=== PATIENT | male | born 1930 | race Caucasian/White ===

== ENCOUNTER → 2016-10-17 | Outpatient (REF) | payer MEDICARE, MEDICAID | END | disposition home or self-care (01) | PROVIDERS: ATTEND Internal Medicine | DX: E11.9 Type 2 diabetes mellitus without complications (principal) ==

== ENCOUNTER → 2016-10-23 | Outpatient (REF) | payer MEDICARE, MEDICAID ==
[2016-10-23 12:22] LABS: ANION GAP 10 MEQ/L (8-16); BLOOD UREA NITROGEN 21 MG/DL (7-18); CALCIUM LEVEL 8.2 MG/DL (8.8-10.2); CARBON DIOXIDE LEVEL 31 MEQ/L (21-32); CHLORIDE LEVEL 96 MEQ/L (98-107); CREATININE FOR GFR 1.17 MG/DL (0.70-1.30); GLOMERULAR FILTRATION RATE > 60.0 (>35); GLUCOSE, FASTING 172 MG/DL (83-110); POTASSIUM SERUM 4.2 MEQ/L (3.5-5.1); SODIUM LEVEL 137 MEQ/L (136-145)
== END | disposition home or self-care (01) ==
PROVIDERS: ATTEND Internal Medicine
DX: I50.9 Heart failure, unspecified (principal); R60.9 Edema, unspecified

== ENCOUNTER → 2016-10-30 | Outpatient (REF) | payer MEDICARE, MEDICAID ==
[2016-10-30 15:18] LABS: ANION GAP 8 MEQ/L (8-16); BLOOD UREA NITROGEN 26 MG/DL (7-18); CARBON DIOXIDE LEVEL 32 MEQ/L (21-32); CHLORIDE LEVEL 99 MEQ/L (98-107); CREATININE FOR GFR 1.16 MG/DL (0.70-1.30); GLOMERULAR FILTRATION RATE > 60.0 (>35); GLUCOSE, FASTING 161 MG/DL (83-110); POTASSIUM SERUM 3.8 MEQ/L (3.5-5.1); SODIUM LEVEL 139 MEQ/L (136-145)
== END | disposition home or self-care (01) ==
PROVIDERS: ATTEND Internal Medicine
DX: I50.9 Heart failure, unspecified (principal); R60.9 Edema, unspecified

== ENCOUNTER → 2017-01-16 | Outpatient (REF) | payer MEDICARE, MEDICAID | PROVIDERS: ATTEND Internal Medicine | DX: E11.9 Type 2 diabetes mellitus without complications (principal) ==

== ENCOUNTER 2017-01-30 00:15 | Inpatient (IN) | payer MEDICARE, MEDICAID ==
[~2017-01-30] VITALS: Ht 172.7 cm; Wt 109.9 kg
[2017-01-30] MEDS ORDERED: NS 500 ML IV ONE (01:00)
[2017-01-30 01:10] LABS: VENOUS BASE EXCESS 5.2 (-2.0-2.0); VENOUS O2 SATURATION 95.9 % (60.0-80.0); VENOUS PARTIAL PRESSURE CO2 42.9 mmHg (38.0-50.0); VENOUS STANDARD HCO3 29.1 MEQ/L
[2017-01-30 01:16] LABS: MEAN CORPUSCULAR HEMOGLOBIN 30.9 pg (27.0-33.0); MEAN CORPUSCULAR VOLUME 90.8 fl (80.0-96.0); PLATELET COUNT, AUTOMATED 313 k/mm3 (150-450); RED CELL DISTRIBUTION WIDTH 13.2 % (11.5-14.5); WHITE BLOOD COUNT 27.4 K/mm3 (4.0-10.0)
[2017-01-30] MEDS ORDERED: OMEP40CA2 PO (01:37)
[2017-01-30] MEDS ORDERED: GUAI100S7 PO (01:37)
[2017-01-30] MEDS ORDERED: TORS100T PO (01:37)
[2017-01-30] MEDS ORDERED: ATOR1TAB21 PO (01:37)
[2017-01-30] MEDS ORDERED: BACITAB3 PO (01:37)
[2017-01-30] MEDS ORDERED: CARB25TA PO (01:37)
[2017-01-30] MEDS ORDERED: ASPI81TA85 PO (01:37)
[2017-01-30] MEDS ORDERED: LEVO125T3 PO (01:37)
[2017-01-30] MEDS ORDERED: ACET-654 PO (01:37)
[2017-01-30] MEDS ORDERED: TROS20TA3 PO (01:37)
[2017-01-30] MEDS ORDERED: LOSA50TA20 PO (01:37)
[2017-01-30] MEDS ORDERED: FINA5TAB2 PO (01:37)
[2017-01-30] MEDS ORDERED: GLUC1KIT IM (01:37)
[2017-01-30] MEDS ORDERED: ALPR2TAB3 PO (01:37)
[2017-01-30] MEDS ORDERED: TRAV04OPD OU (01:37)
[2017-01-30] MEDS ORDERED: K-TA10TA2 PO (01:37)
[2017-01-30] MEDS ORDERED: TRES1INJ SC (01:37)
[2017-01-30] MEDS ORDERED: TRAM50TA2 PO ×2 (01:37)
[2017-01-30] MEDS ORDERED: HUMA100I3 SC ×2 (01:37)
[2017-01-30 01:41] LABS: BANDS 1 % (< 11); TOXIC VACUOLATION 1+
[2017-01-30 01:44] LABS: MICROSCOPIC INDICATED? MAN YES (NO)
[2017-01-30 01:48] LABS: MICROSCOPIC EXAM PERFORMED
[2017-01-30 01:49] LABS: WBC, URINE TNTC /hpf (0-3)
[2017-01-30 01:50] LABS: SQUAMOUS EPITHELIAL CELL URINE NONE SEEN /hpf (SMALL AMT)
[2017-01-30 01:51] LABS: BACTERIA, URINE SMALL AMOUNT; HYALINE CAST, URINE NONE SEEN /lpf (0-1)
[2017-01-30 02:03] LABS: ALBUMIN 3.2 GM/DL (3.2-5.2); ALBUMIN/GLOBULIN RATIO 0.97 (1.00-1.93); BILIRUBIN,DIRECT 0.5 MG/DL (0.0-0.2); BILIRUBIN,TOTAL 1.9 MG/DL (0.2-1.0); CALCIUM LEVEL 7.9 MG/DL (8.8-10.2); CREATININE FOR GFR 1.41 MG/DL (0.70-1.30); GLOMERULAR FILTRATION RATE 50.9 (>35); TOTAL PROTEIN 6.5 GM/DL (6.4-8.2)
[2017-01-30] MEDS ORDERED: ISOVUE-370 76% 100ML VIAL (Q9967) As Ordered ONE (03:06)
--- NOTE | 2017-01-30 03:50 | REPUSA ---
CLINICAL HISTORY: Chest pain. TECHNIQUE: Multiple axial CT images were obtained through the thorax with IV contrast material. COMMENTS: No pulmonary embolus or aortic dissection is seen. Small sliding hernia. Fluid-filled esophagus suggestive of reflux. Thickened esophagus. This can be secondary to reflux esophagitis. Bilateral basilar multifocal air trapping in the lung bases with associated basilar atelectatic pulmo nary bands. There is no evidence of pleural or parenchymal mass. There are no pleural effusions. There is no evid ence of hilar or mediastinal lymphadenopathy. The heart and great vessels are within normal limits. The visualized portions of the liver are of uniform attenuation without mass or defect. There is no i ntra or extrahepatic biliary ductal dilatation. The spleen is unremarkable. The visualized pancreas i s of normal contour and attenuation characteristics. There is no evidence of adrenal mass. The visual ized portions of the kidneys present no abnormalities. The bony structures are free of lytic or blastic lesions. 1.2 cm indeterminate mildly hyperdense lesion of the right kidney. Post contrast images demonstrate no evidence for abnormal enhancement. Mild hepatomegaly. IMPRESSION: Small sliding type hiatal hernia. Suspected reflux esophagitis. Bilateral basilar multifocal air trapping in the lungs. Cardiomegaly. No pulmonary embolus or aortic dissection. Fluid-filled distended stomach. Recent ingestion of fluid versus gastroparesis. Thank you for your kind referral of this patient.
[2017-01-30] MEDS ORDERED: CEFEPIME HCL 2 GM in D5W MINI-BAG PLUS 50 ML IV ONE (04:00)
--- NOTE | 2017-01-30 04:10 | REPUSA ---
CLINICAL HISTORY: Abdominal pain. TECHNIQUE: Multiple axial, sagittal and coronal CT images were obtained through the abdomen and pelvi s after administration of intravenous contrast material. COMMENTS: 2.3 cm oval well defined soft tissue nodule adjacent to the right psoas muscle at L3 level with minim al central calcifications. Central calcified mesenteric lymph nodes the largest measuring 1.4 cm. The liver is mildly enlarged with decreased attenuation without mass or defect. There is no intra or extrahepatic biliary ductal dilatation. The spleen is normal. The gallbladder is surgically absent. T he pancreas is of normal contour and attenuation characteristics. There is no evidence of adrenal mas s. 1.3 cm mildly hyperdense lesion of the right kidney. Possibly a complex cyst. Both kidneys demonstrate prompt and equal nephrograms. The kidneys are normal in size, shape and conf iguration. There is no evidence of renal or ureteral mass. No renal or ureteral calculi are identifie d. There is no hydroureter or hydronephrosis. No evidence for appendicitis. There is no bowel wall thickening. No evidence for small or large shaan l obstruction. There is no evidence of abdominal ascites or lymphadenopathy. Diffusely thickened bladder. There is no pelvic ascites or lymphadenopathy. Moderate large bowel fecal stasis. Uncomplicated diverticulosis. Percutaneous cystostomy tube is in good position. Images of the lung bases show no evidence of pleural or parenchymal mass. There are no pleural effusi ons. The bony structures are free of lytic or blastic lesions. Multilevel degenerative changes are seen in volving the thoracolumbar spine. Scattered calcifications are seen involving the aorta and major bran ches compatible with atherosclerosis. IMPRESSION: Hepatomegaly with fatty infiltration. Prior cholecystectomy. Calcified central mesenteric lymph nodes. Oval-shaped soft tissue nodule adjacent to the right psoas muscle. This needs a followup exam. Possib ly an enlarged lymph node. Cystostomy tube is in good position. Thickened bladder. Under distention versus cystitis. Mild constipation. Thank you for your kind referral of this patient.
[2017-01-30] MEDS ORDERED: ASPI81CH PO (04:49)
[2017-01-30] MEDS ORDERED: ALPR0.25 PO (05:09)
[2017-01-30] MEDS ORDERED: SODI0.65 (05:09)
[2017-01-30] MEDS ORDERED: POTA20TA6 PO (05:09)
[2017-01-30] MEDS ORDERED: MILKSUS PO (05:09)
[2017-01-30] MEDS ORDERED: BISA10SU PR (05:09)
[2017-01-30] MEDS ORDERED: OMEP20CA3 PO (05:09)
[2017-01-30] MEDS ORDERED: ACETAMINOPHEN 500 MG TAB PO PRN (05:30)
[2017-01-30] MEDS ORDERED: ONDANSETRON 4MG/2ML VIAL (J2405) IV PRN (05:30)
[2017-01-30] MEDS ORDERED: BISACODYL 10 MG SUPP PR PRN (05:30)
[2017-01-30] MEDS ORDERED: GLUCAGON FOR INJ 1 MG VIAL (J1610) SC PRN (05:45)
[2017-01-30] MEDS ORDERED: traMADol 50 MG TAB PO PRN (05:45)
[2017-01-30] MEDS ORDERED: DEXTROSE 50% 50 ML SYRINGE IV PRN (05:45)
[2017-01-30] MEDS ORDERED: ALPRAZolam 0.25 MG TAB PO PRN (05:45)
[2017-01-30] MEDS ORDERED: GLUCOSE 4 GM CHEW TABLET PO PRN (05:45)
[2017-01-30] MEDS: NS 1,000 ML IV SCH (06:24)
[2017-01-30] MEDS: HumaLOG INSULIN (NovoLOG) PER UNIT SC SCH ×4 (08:22→20:56)
[2017-01-30 08:37] VITALS: BP 167/79
[2017-01-30] MEDS: OMEPRAZOLE 20 MG CAP PO SCH (09:51)
[2017-01-30] MEDS: LEVOTHYROXINE 0.125 MG TAB (125 MCG) PO SCH (09:51)
[2017-01-30] MEDS: SENOKOT S TAB PO SCH ×2 (09:51→20:55)
[2017-01-30] MEDS: SINEMET 25-100 MG TAB PO SCH ×3 (09:51→20:55)
[2017-01-30] MEDS: FINASTERIDE 5 MG TAB PO SCH (09:52)
[2017-01-30] MEDS: ASPIRIN 81 MG CHEW TABLET PO SCH (09:52)
[2017-01-30] MEDS: LEVEMIR (INSULIN DETEMIR) 1 UNITS/0.01ML SC SCH (09:53)
[2017-01-30] MEDS: HEPARIN SOD (PORCINE) 5000 UNITS/ML VIAL SC SCH ×2 (09:53→20:55)
--- NOTE | 2017-01-30 10:00 | HPE ---
DATE OF ADMISSION: 01/30/2017 PRIMARY CARE PROVIDER: Ashely Ly. CHIEF COMPLAINT: Fever of 104 after suprapubic catheter insertion and hypoxia. PAST MEDICAL HISTORY: 1. Diabetes. 2. Hypertension. 3. Hypertensive heart disease. 4. Hypothyroid. 5. Parkinson's disease. 6. Chronic urinary retention status post suprapubic catheter placement on 01/29/[address] [facility]. 7. Contracture of bilateral knees. 8. Hyperlipidemia. 9. Gastroesophageal reflux disease (GERD). 10. Glaucoma. 11. Benign prostatic hypertrophy (BPH). HISTORY OF PRESENT ILLNESS: This is an 86-year-old male resident of [facility], had suprapubic catheter placement at [facility] on 01/29/2017 at around 4 p.m. Patient was discharged from there after the procedure and came back to [facility] at around 7 p.m. At that time, patient was noted to be febrile with a temperature of 104, tachycardic to 111. Patient was given Tylenol. Repeat temperature still remained elevated to 101.4. Patient was also noted to be hypoxic on room air to about 84% requiring 4 liters of oxygen to maintain at 92% saturation so the patient was sent to the emergency room for evaluation. In the ED on initial presentation, patient was febrile to 100, tachycardic to 110, blood pressure was 146/69, pulse oximetry 87% on room air and 91% after 4 liters nasal cannula. Patient complained of some abdominal soreness, otherwise was comfortable. Lab work was sent and was found to have a WBC of 27.4 and a creatinine of 1.41 which is elevated from baseline. Patient's lactate was normal at 1.7. Total bilirubin was elevated at 1.9. Urine had innumerable WBCs and 10-15 RBC. Patient was diagnosed with sepsis due to urinary tract infection with possibly transient bacteremia and admitted under hospitalist service. Blood culture and urine cultures were ordered. Patient also had CT scan of the chest which was negative for any pneumonia or pulmonary embolism or dissection. There was bilateral bibasilar multifocal air trapping in the lungs and there was also small sliding type of hiatal hernia and reflux esophagitis, cardiomegaly. Patient had a CT abdomen and pelvis done also which showed hepatomegaly with fatty infiltration, central calcified mesenteric lymph nodes and oval soft tissue nodule adjacent to the right psoas muscle, possibly an enlarged lymph node. The cystostomy was seen in good position. There was thickened bladder. Concern for cystitis. Mild constipation. Patient was started on cefepime in the emergency room. PAST SURGICAL HISTORY: Cardiac catheterization. Thyroidectomy. Circumcision. Cholecystectomy. Tonsillectomy. Removal of a spot on kidney. FAMILY HISTORY: Nothing significant. SOCIAL HISTORY: Patient does not smoke, does not use alcohol or recreational drugs. ALLERGIES; AMOXICILLIN and AZITHROMYCIN. REVIEW OF SYSTEMS: Patient denied any nausea, vomiting or diarrhea. Does feel a little constipated. Denies any cough, phlegm, sore throat. Denies any chest pain, shortness of breath. PHYSICAL EXAMINATION: Vital signs: Temperature 100, pulse 96, blood pressure 127/61, pulse oximetry 92% on 2 liters nasal canula. General: Patient awake, alert, oriented times three lying down in bed in no acute distress. HEENT: Normocephalic, atraumatic. Dry mucous membranes. Anicteric eyes. Chest: Clear to auscultation. Cardiovascular: S1, S2, regular. No rub, murmur or gallop. Abdomen: Mildly tender on the suprapubic catheter area. Bowel sounds present. Extremities: No edema. LABORATORY DATA: WBC 27.4, hemoglobin 15.4, platelets 313. Sodium 141, potassium 4, chloride 102, bicarbonate 30, BUN 24, creatinine 1.41. Glucose 92, lactate 1.7. Calcium 7.9. Total bilirubin 1.9. Direct 0.5. Liver function tests are normal. Blood gas within normal limits. Radiology: CT chest and CT abdomen have been reviewed and as above. ASSESSMENT AND PLAN: This is an 86-year-old male admitted for sepsis and possible transient bacteremia after urological procedure and urinary tract infection. PLAN: 1. Sepsis, possible urinary tract infection possibly due to transient bacteremia after a suprapubic catheter placement from chronic urine as the patient had chronic Sanders for 4 years. Urine culture has been sent. Will continue patient on cefepime. 2. Hypoxia. Unknown cause, could be related to bacteremia and sepsis. Will continue with oxygen supplementation. 3. Diabetes. Will add Lispro sliding scale. Will also give long acting Levemir insulin. Patient uses insulin. Will have to convert the dosage to Levemir. 4. Hypertension. At present, patient's blood pressure is well controlled and also has mildly elevated creatinine so will hold Losartan potassium. If required, will start the patient on amlodipine. 5. Acute kidney injury, could be due to mild dehydration and urinary tract infection. Will hold torsemide and losartan. Will give mild hydration. 6. Benign prostatic hypertrophy (BPH). Will continue with finasteride and trospium. 7. Hyperlipidemia. Will continue with atorvastatin. 8. Parkinson's disease. Will continue with carbidopa and levodopa. 9. Deep venous thrombosis (DVT) prophylaxis has been ordered. 10. Gastrointestinal (GI) prophylaxis has been ordered.
[2017-01-30] MEDS: TROSPIUM 20 MG TAB PO SCH ×2 (11:20→20:55)
[2017-01-30 14:00] VITALS: BP 166/80
[2017-01-30] MEDS: CEFEPIME HCL 1 GM in D5W MINI-BAG PLUS 50 ML IV SCH (17:06)
[2017-01-30] MEDS: ATORVASTATIN 20 MG TAB PO SCH (20:55)
[2017-01-30] MEDS: LATANOPROST 0.005% OPHTH SOLN 2.5 ML OU SCH (20:56)
[2017-01-30 22:00] VITALS: BP 180/82
[2017-01-30 22:52] VITALS: BP 182/86
[2017-01-30] MEDS ORDERED: **hydrALAZINE** 10 MG TAB PO ONE (23:00)
[2017-01-31 00:10] VITALS: BP 181/81
[2017-01-31] MEDS ORDERED: LOSARTAN 50 MG TAB PO ONE (00:30)
[2017-01-31 02:28] VITALS: BP 166/58
[2017-01-31] MEDS: CEFEPIME HCL 1 GM in D5W MINI-BAG PLUS 50 ML IV SCH ×2 (03:06→16:17)
[2017-01-31] MEDS: NS 1,000 ML IV SCH ×2 (03:06→09:03)
[2017-01-31 06:00] VITALS: BP 158/64
[2017-01-31 06:46] LABS: BASO % 0.2 % (0.0-1.0); EOS # 0.1 K/mm3 (0.0-0.50); EOS % 0.8 % (0.0-3.0); LARGE UNSTAINED CELL # 0.2 K/mm3 (0.0-0.4); LYMPH # 0.7 K/mm3 (1.5-4.5); LYMPH % 3.5 % (24.0-44.0); MEAN CORPUSCULAR HGB CONC 34.2 g/dl (32.0-36.5); MEAN CORPUSCULAR VOLUME 90.7 fl (80.0-96.0); MONO # 0.7 K/mm3 (0.0-0.8); MONO % 4.3 % (0.0-5.0); NEUTROPHILS % 90.3 % (36.0-66.0); PLATELET COUNT, AUTOMATED 249 k/mm3 (150-450); RED CELL DISTRIBUTION WIDTH 13.2 % (11.5-14.5); WHITE BLOOD COUNT 16.6 K/mm3 (4.0-10.0)
[2017-01-31 07:02] LABS: CALCIUM LEVEL 8.5 MG/DL (8.8-10.2); CREATININE FOR GFR 1.31 MG/DL (0.70-1.30); GLOMERULAR FILTRATION RATE 55.4 (>35); POTASSIUM SERUM 3.7 MEQ/L (3.5-5.1)
[2017-01-31] MEDS: HumaLOG INSULIN (NovoLOG) PER UNIT SC SCH ×4 (07:12→21:00)
[2017-01-31] MEDS: LOSARTAN 50 MG TAB PO SCH ×2 (09:00→16:18)
[2017-01-31] MEDS: TROSPIUM 20 MG TAB PO SCH ×2 (09:00→21:24)
[2017-01-31] MEDS: SINEMET 25-100 MG TAB PO SCH ×3 (09:00→21:24)
[2017-01-31] MEDS: ASPIRIN 81 MG CHEW TABLET PO SCH (09:00)
[2017-01-31] MEDS: OMEPRAZOLE 20 MG CAP PO SCH (09:00)
[2017-01-31] MEDS: amLODIPine 5 MG TAB PO SCH ×2 (09:00→21:24)
[2017-01-31] MEDS: LEVOTHYROXINE 0.125 MG TAB (125 MCG) PO SCH (09:00)
[2017-01-31] MEDS: FINASTERIDE 5 MG TAB PO SCH (09:00)
[2017-01-31] MEDS: SENOKOT S TAB PO SCH ×2 (09:00→21:24)
[2017-01-31] MEDS: HEPARIN SOD (PORCINE) 5000 UNITS/ML VIAL SC SCH ×2 (09:01→21:25)
[2017-01-31] MEDS: LEVEMIR (INSULIN DETEMIR) 1 UNITS/0.01ML SC SCH (09:02)
[2017-01-31 14:00] VITALS: BP 148/76
--- NOTE | 2017-01-31 14:14 | IPNPDOC ---
Subjective Date Seen The patient was seen on 01/31/17. Subjective Chief Complaint/HPI The patient is a 86-year-old male admitted with a reason for visit of Sepsis/ Uti. Events since last encounter Feeling much better than at arrival, tolerating diet, no pain, does not want to return to [facility] Constitutional: Denies: Chills, Fever Pulmonary: Denies: Dyspnea, Cough Cardiovascular: Denies: Chest Pain, Palpitations Gastrointestinal: Denies: Nausea, Vomiting, Abdominal Pain Objective Physical Examination General Exam: Positive: Alert, Cooperative, No Acute Distress ENT Exam: Positive: Mucous membr. moist/pink Chest Exam: Positive: Diminished, Negative: Rales, Rhonchi, Wheezing Heart Exam: Positive: Rate Normal, Normal S1, Normal S2 Abdomen Exam: Positive: Normal bowel sounds, Soft Psych Exam: Positive: Mood NL, Negative: Anxiety Assessment /Plan Problems (1) UTI (urinary tract infection) Status: Acute Problem Text: UTI with suspected transient bacteremia possibly caused by catheter placement Cultures pending on broad spectrum antibiotics with activity against most recently resulted cultures Element of resolving acute renal failure, holding diuretics (2) Diabetes Status: Chronic (3) HTN (hypertension) Status: Chronic Problem Text: restart arb, start norvasc hold diuretic (4) Hypothyroid Status: Chronic (5) Parkinson disease Status: Chronic (6) Urinary retention Status: Chronic Problem Text: newly placed suprapubic catheter just prior to this admission (7) Altered mental status Status: Acute Problem Text: resolved VS, I&O, 24H, Fishbone Vital Signs/I&O Vital Signs Date Time Temp Pulse Resp B/P (MAP) Pulse Ox O2 Delivery O2 Flow Rate FiO2 01/31/17 06:00 97.1 80 19 158/64 (95) 94 Room Air 01/30/17 22:00 4.0 I&O- Last 24 Hours up to 6 AM 01/31/17 06:00 Intake Total 2460 ml Output Total 1825 ml Balance 635 ml Laboratory Data 24H LABS Laboratory Tests 2 01/30/17 16:29: Bedside Glucose (Misc Panel) 161H 01/30/17 20:48: Bedside Glucose (Misc Panel) 178H 01/31/17 05:56: White Blood Count 16.6H, Red Blood Count 4.01L, Hemoglobin 12.4#L, Hematocrit 36.4L, Mean Corpuscular Volume 90.7, Mean Corpuscular Hemoglobin 31.0, Mean Corpuscular Hemoglobin Concent 34.2, Red Cell Distribution Width 13.2, Platelet Count 249, Neutrophils (%) (Auto) 90.3H, Lymphocytes (%) (Auto) 3.5L, Monocytes (%) (Auto) 4.3, Eosinophils (%) (Auto) 0.8, Basophils (%) (Auto) 0.2, Neutrophils # (Auto) 15.0H, Lymphocytes # (Auto) 0.7L, Monocytes # (Auto) 0.7, Eosinophils # (Auto) 0.1, Basophils # (Auto) 0.0, Large Unclassified Cells % 1.0 , Large Unclassified Cells # 0.2, Anion Gap 5L, Glomerular Filtration Rate 55.4 , Blood Urea Nitrogen 27H, Creatinine 1.31H, Sodium Level 143, Potassium Level 3.7, Chloride Level 106, Carbon Dioxide Level 32, Calcium Level 8.5L 01/31/17 11:28: Bedside Glucose (Misc Panel) 108 CBC/BMP Laboratory Tests 01/31/17 05:56 Red Blood Count 4.01 L, Mean Corpuscular Volume 90.7, Mean Corpuscular Hemoglobin 31.0, Mean Corpuscular Hemoglobin Concent 34.2, Red Cell Distribution Width 13.2, Neutrophils (%) (Auto) 90.3 H, Lymphocytes (%) (Auto) 3.5 L, Monocytes (%) (Auto) 4.3, Eosinophils (%) (Auto) 0.8, Basophils (%) (Auto ) 0.2, Neutrophils # (Auto) 15.0 H, Lymphocytes # (Auto) 0.7 L, Monocytes # ( Auto) 0.7, Eosinophils # (Auto) 0.1, Basophils # (Auto) 0.0, Calcium Level 8.5 L Microbiology Microbiology 01/30/17 Blood Culture - Preliminary, Resulted No growth after 24 hours . All specim... 01/30/17 Blood Culture - Preliminary, Resulted No growth after 24 hours . All specim... 01/30/17 Urine Culture, Received Pending MINA GUEVARA MD January 31, 2017 14:14
[2017-01-31] MEDS: ATORVASTATIN 20 MG TAB PO SCH (21:24)
[2017-01-31] MEDS: LATANOPROST 0.005% OPHTH SOLN 2.5 ML OU SCH (21:25)
[2017-01-31 22:00] VITALS: BP 164/48
[2017-02-01] MEDS: CEFEPIME HCL 1 GM in D5W MINI-BAG PLUS 50 ML IV SCH (03:12)
[2017-02-01 06:00] VITALS: BP 156/80
[2017-02-01 06:10] LABS: BASO # 0.1 K/mm3 (0.0-0.2); BASO % 0.4 % (0.0-1.0); EOS # 0.4 K/mm3 (0.0-0.50); EOS % 2.9 % (0.0-3.0); LARGE UNSTAINED CELL # 0.2 K/mm3 (0.0-0.4); LARGE UNSTAINED CELL % 1.2 % (0.0-4.0); LYMPH # 0.7 K/mm3 (1.5-4.5); LYMPH % 3.8 % (24.0-44.0); MEAN CORPUSCULAR HGB CONC 32.8 g/dl (32.0-36.5); MEAN CORPUSCULAR VOLUME 91.4 fl (80.0-96.0); MONO # 0.6 K/mm3 (0.0-0.8); MONO % 4.2 % (0.0-5.0); NEUTROPHILS # 12.5 K/mm3 (1.8-7.7); NEUTROPHILS % 87.4 % (36.0-66.0); PLATELET COUNT, AUTOMATED 259 k/mm3 (150-450); RED CELL DISTRIBUTION WIDTH 13.1 % (11.5-14.5); WHITE BLOOD COUNT 14.3 K/mm3 (4.0-10.0)
[2017-02-01 06:29] LABS: ANION GAP 7 MEQ/L (8-16); BLOOD UREA NITROGEN 19 MG/DL (7-18); CARBON DIOXIDE LEVEL 27 MEQ/L (21-32); CHLORIDE LEVEL 110 MEQ/L (98-107); CREATININE FOR GFR 1.03 MG/DL (0.70-1.30); GLOMERULAR FILTRATION RATE > 60.0 (>35); GLUCOSE, FASTING 91 MG/DL (83-110); POTASSIUM SERUM 3.6 MEQ/L (3.5-5.1); SODIUM LEVEL 144 MEQ/L (136-145)
[2017-02-01] MEDS ORDERED: LEVA750T PO (06:37)
[2017-02-01] MEDS: HumaLOG INSULIN (NovoLOG) PER UNIT SC SCH ×2 (07:30→12:19)
[2017-02-01] MEDS: SINEMET 25-100 MG TAB PO SCH (08:37)
[2017-02-01] MEDS: TROSPIUM 20 MG TAB PO SCH (08:37)
[2017-02-01] MEDS: SENOKOT S TAB PO SCH (08:37)
[2017-02-01] MEDS: FINASTERIDE 5 MG TAB PO SCH (08:37)
[2017-02-01] MEDS: ASPIRIN 81 MG CHEW TABLET PO SCH (08:39)
[2017-02-01] MEDS: LEVOTHYROXINE 0.125 MG TAB (125 MCG) PO SCH (08:39)
[2017-02-01] MEDS: OMEPRAZOLE 20 MG CAP PO SCH (08:39)
[2017-02-01 08:40] VITALS: BP 180/80
[2017-02-01] MEDS: amLODIPine 5 MG TAB PO SCH (08:40)
[2017-02-01] MEDS: LOSARTAN 50 MG TAB PO SCH (08:40)
[2017-02-01] MEDS: HEPARIN SOD (PORCINE) 5000 UNITS/ML VIAL SC SCH (08:41)
[2017-02-01] MEDS: LEVEMIR (INSULIN DETEMIR) 1 UNITS/0.01ML SC SCH (08:41)
[2017-02-01] MEDS ORDERED: PREVNAR 13 VACCINE SYRINGE (CPT CODE:90670) IM SCH (09:00)
--- NOTE | 2017-02-02 14:32 | DSES ---
DATE OF ADMISSION: 01/30/2017 DATE OF DISCHARGE: 02/01/2017 No specialists were involved in his care. No complications during his stay. No procedures were performed during his stay. DISCHARGE DIAGNOSES: 1. Urinary tract infection with suspected transient bacteremia possibly caused by catheter placement. 2. Diabetes. 3. Hypertension. 4. Hypothyroidism. 5. Chronic urinary retention with a newly placed suprapubic catheter. 6. Metabolic encephalopathy. 7. Acute renal failure. 8. Parkinson's disease. SUMMARY OF HOSPITALIZATION: This is an 86-year-old who presented postoperative day number one from placement of a suprapubic catheter, was found to have urinary tract infection, suspected transient bacteremia. Urine grew Pseudomonas. The patient initially had been started on broad-spectrum antibiotics which were tapered to quinolone at the time of discharge. The patient improved quite quickly, was monitored in the hospital, tolerating a diet. Mental status which was somewhat decreased at the time of presentation was improved. On the day of discharge, he is feeling well. He has no complaints of pain, chest pain, or shortness of breath. Temperature is 96.4, pulse 76, respiratory rate 20, blood pressure is 156/80, 98% on room air. Awake, alert, pleasant, and easily conversant. Breathing is symmetrical and rested. Abdomen is soft, doughy, nontender. Suprapubic catheter is in place, draining clear urine. LABORATORY DATA: White cell count 14.3, down from 27.4, hemoglobin 12.6, and platelets of 259. BUN 19, creatinine 1.03. DISCHARGE INSTRUCTIONS: Include the followin. Followup with [facility] ([facility]) provider within one week. 2. Diet and activity as tolerated. 3. Continue suprapubic catheter. DISCHARGE MEDICATIONS: - Levaquin 750 mg by mouth daily for five days Continue: - Tylenol 650 mg every four hours as needed for pain - Xanax 0.25 mg by mouth daily as needed - aspirin 81 mg by mouth daily - atorvastatin 20 mg by mouth daily at bedtime - bisacodyl suppository as needed - Sinemet 25/100 1.5 mg by mouth three times a day - finasteride 5 mg by mouth daily - glucagon as needed - guaifenesin as needed - insulin continuing home dosing - lactobacillus one tablet by mouth twice a day - Synthroid 125 mcg by mouth daily - losartan 50 mg by mouth daily - milk of magnesia as needed - omeprazole 20 mg by mouth daily - potassium chloride 20 mEq by mouth twice a day - nasal spray as needed - torsemide 50 mg by mouth twice a day - tramadol 50 mg by mouth daily as needed and every eight hours as needed - Travatan-Z one drop in each eye daily at bedtime - Tresiba 116 units subcutaneously daily - trospium 20 mg by mouth twice a day
== END 2017-02-01 14:05 | DRG 863 ==
LOC: EDBD 00:15 → M ED 01:55 → M ED INP 05:27 → M MSPAV 08:37
PROVIDERS: ADMIT Internal Medicine Nephrology; ATTEND Internal Medicine
DX: T81.4XXA Infection following a procedure, initial encounter (principal); N17.9 Acute kidney failure, unspecified; N39.0 Urinary tract infection, site not specified; E11.9 Type 2 diabetes mellitus without complications; I11.9 Hypertensive heart disease without heart failure; E03.9 Hypothyroidism, unspecified; G20 Parkinson's disease; R33.9 Retention of urine, unspecified; E78.5 Hyperlipidemia, unspecified; R09.02 Hypoxemia; E86.0 Dehydration; K21.0 Gastro-esophageal reflux disease with esophagitis; H40.9 Unspecified glaucoma; N40.1 Benign prostatic hyperplasia with lower urinary tract symptoms; K44.9 Diaphragmatic hernia without obstruction or gangrene; K76.0 Fatty (change of) liver, not elsewhere classified; K59.00 Constipation, unspecified; Z88.0 Allergy status to penicillin; Z88.1 Allergy status to other antibiotic agents; Z79.4 Long term (current) use of insulin; Z79.899 Other long term (current) drug therapy; Z79.82 Long term (current) use of aspirin; Z79.891 Long term (current) use of opiate analgesic; Y83.6 Removal of other organ (partial) (total) as the cause of abnormal reaction of the patient, or of later complication, without mention of misadventure at the time of the procedure

== ENCOUNTER → 2017-02-05 | Outpatient (REF) | payer MEDICARE, MEDICAID ==
[~2017-02-05] MED LIST: ACET-654 PO; ALPR0.25 PO; ALPR2TAB3 PO; ASPI81CH PO; ASPI81TA85 PO; ATOR1TAB21 PO; BACITAB3 PO; BISA10SU PR; CARB25TA PO; FINA5TAB2 PO; GLUC1KIT IM; GUAI100S7 PO; HUMA100I3 SC; K-TA10TA2 PO; LEVA750T PO; LEVO125T3 PO; LOSA50TA20 PO; MILKSUS PO; OMEP20CA3 PO; OMEP40CA2 PO; POTA20TA6 PO; SODI0.65; TORS100T PO; TRAM50TA2 PO; TRAV04OPD OU; TRES1INJ SC; TROS20TA3 PO
--- NOTE | 2017-02-05 16:57 | REP ---
Clinical: Wheezing and shortness of breath. Comparison: 08/25/2016. Findings: Perihilar and right basilar atelectasis cannot be excluded. Underlying chronic changes are noted. Stable cardiomegaly. No effusion. No pneumothorax. Skeletal structures demonstrate stable degenerative changes. Impression: Perihilar and right basilar atelectasis cannot be excluded. Signed by Berry Bajwa MD 02/05/2017 04:49 P
== END ==
PROVIDERS: ATTEND Internal Medicine
DX: R06.02 Shortness of breath (principal); R06.2 Wheezing; R91.8 Other nonspecific abnormal finding of lung field

== ENCOUNTER → 2017-02-06 | Outpatient (REF) | payer MEDICARE, MEDICAID ==
[2017-02-06 11:02] LABS: MEAN CORPUSCULAR HEMOGLOBIN 30.6 pg (27.0-33.0); MEAN CORPUSCULAR HGB CONC 33.8 g/dl (32.0-36.5); MEAN CORPUSCULAR VOLUME 90.4 fl (80.0-96.0); RED CELL DISTRIBUTION WIDTH 13.1 % (11.5-14.5); WHITE BLOOD COUNT 10.4 K/mm3 (4.0-10.0)
[2017-02-06 11:25] LABS: ANION GAP 8 MEQ/L (8-16); BLOOD UREA NITROGEN 21 MG/DL (7-18); CALCIUM LEVEL 7.7 MG/DL (8.8-10.2); CARBON DIOXIDE LEVEL 33 MEQ/L (21-32); CHLORIDE LEVEL 96 MEQ/L (98-107); CREATININE FOR GFR 1.12 MG/DL (0.70-1.30); GLOMERULAR FILTRATION RATE > 60.0 (>35); GLUCOSE, FASTING 141 MG/DL (83-110); POTASSIUM SERUM 3.7 MEQ/L (3.5-5.1); SODIUM LEVEL 137 MEQ/L (136-145)
== END ==
PROVIDERS: ATTEND Internal Medicine
DX: I50.9 Heart failure, unspecified (principal); I11.0 Hypertensive heart disease with heart failure

== ENCOUNTER → 2017-02-13 | Outpatient (REF) | payer MEDICARE, MEDICAID ==
[2017-02-13 10:00] LABS: MEAN CORPUSCULAR HGB CONC 34.2 g/dl (32.0-36.5); MEAN CORPUSCULAR VOLUME 90.8 fl (80.0-96.0); RED CELL DISTRIBUTION WIDTH 12.9 % (11.5-14.5); WHITE BLOOD COUNT 10.8 K/mm3 (4.0-10.0)
[2017-02-13 10:03] LABS: ANION GAP 10 MEQ/L (8-16); BLOOD UREA NITROGEN 21 MG/DL (7-18); CALCIUM LEVEL 7.9 MG/DL (8.8-10.2); CARBON DIOXIDE LEVEL 29 MEQ/L (21-32); CHLORIDE LEVEL 97 MEQ/L (98-107); GLOMERULAR FILTRATION RATE > 60.0 (>35); GLUCOSE, FASTING 226 MG/DL (83-110); SODIUM LEVEL 136 MEQ/L (136-145)
== END ==
PROVIDERS: ATTEND Internal Medicine
DX: I11.0 Hypertensive heart disease with heart failure (principal); I50.9 Heart failure, unspecified

== ENCOUNTER → 2017-02-16 | Outpatient (REF) | payer MEDICARE, MEDICAID ==
[2017-02-16 10:14] LABS: MEAN CORPUSCULAR HEMOGLOBIN 30.3 pg (27.0-33.0); MEAN CORPUSCULAR HGB CONC 33.7 g/dl (32.0-36.5); RED CELL DISTRIBUTION WIDTH 12.8 % (11.5-14.5); WHITE BLOOD COUNT 7.9 K/mm3 (4.0-10.0)
== END ==
PROVIDERS: ATTEND Internal Medicine
DX: D72.829 Elevated white blood cell count, unspecified (principal)

== ENCOUNTER → 2017-02-20 | Outpatient (REF) | payer MEDICARE, MEDICAID ==
[2017-02-20 10:59] LABS: MEAN CORPUSCULAR HGB CONC 33.4 g/dl (32.0-36.5); MEAN CORPUSCULAR VOLUME 89.9 fl (80.0-96.0); WHITE BLOOD COUNT 8.9 K/mm3 (4.0-10.0)
[2017-02-20 11:24] LABS: ANION GAP 7 MEQ/L (8-16); BLOOD UREA NITROGEN 23 MG/DL (7-18); CARBON DIOXIDE LEVEL 33 MEQ/L (21-32); CHLORIDE LEVEL 97 MEQ/L (98-107); CREATININE FOR GFR 1.19 MG/DL (0.70-1.30); GLOMERULAR FILTRATION RATE > 60.0 (>35); GLUCOSE, FASTING 162 MG/DL (83-110); SODIUM LEVEL 137 MEQ/L (136-145)
== END ==
PROVIDERS: ATTEND Internal Medicine
DX: I50.9 Heart failure, unspecified (principal); I11.0 Hypertensive heart disease with heart failure

== ENCOUNTER → 2017-02-27 | Outpatient (REF) | payer MEDICARE, MEDICAID ==
[2017-02-27 11:27] LABS: MEAN CORPUSCULAR HEMOGLOBIN 30.7 pg (27.0-33.0); MEAN CORPUSCULAR HGB CONC 34.1 g/dl (32.0-36.5); MEAN CORPUSCULAR VOLUME 90.1 fl (80.0-96.0); RED CELL DISTRIBUTION WIDTH 13.1 % (11.5-14.5); WHITE BLOOD COUNT 8.6 K/mm3 (4.0-10.0)
[2017-02-27 11:55] LABS: ANION GAP 7 MEQ/L (8-16); BLOOD UREA NITROGEN 19 MG/DL (7-18); CALCIUM LEVEL 8.4 MG/DL (8.8-10.2); CARBON DIOXIDE LEVEL 34 MEQ/L (21-32); CHLORIDE LEVEL 96 MEQ/L (98-107); CREATININE FOR GFR 1.17 MG/DL (0.70-1.30); GLOMERULAR FILTRATION RATE > 60.0 (>35); GLUCOSE, FASTING 95 MG/DL (83-110); POTASSIUM SERUM 3.8 MEQ/L (3.5-5.1); SODIUM LEVEL 137 MEQ/L (136-145)
== END ==
PROVIDERS: ATTEND Internal Medicine
DX: I11.0 Hypertensive heart disease with heart failure (principal); I50.9 Heart failure, unspecified

== ENCOUNTER → 2017-03-06 | Outpatient (REF) | payer MEDICARE, MEDICAID ==
[2017-03-06 10:44] LABS: MEAN CORPUSCULAR HEMOGLOBIN 30.6 pg (27.0-33.0); MEAN CORPUSCULAR HGB CONC 33.8 g/dl (32.0-36.5); MEAN CORPUSCULAR VOLUME 90.6 fl (80.0-96.0); RED CELL DISTRIBUTION WIDTH 13.3 % (11.5-14.5); WHITE BLOOD COUNT 10.3 K/mm3 (4.0-10.0)
[2017-03-06 11:10] LABS: ANION GAP 10 MEQ/L (8-16); BLOOD UREA NITROGEN 23 MG/DL (7-18); CALCIUM LEVEL 8.1 MG/DL (8.8-10.2); CARBON DIOXIDE LEVEL 30 MEQ/L (21-32); CHLORIDE LEVEL 98 MEQ/L (98-107); CREATININE FOR GFR 1.18 MG/DL (0.70-1.30); GLOMERULAR FILTRATION RATE > 60.0 (>35); GLUCOSE, FASTING 212 MG/DL (83-110); POTASSIUM SERUM 3.8 MEQ/L (3.5-5.1); SODIUM LEVEL 138 MEQ/L (136-145)
== END ==
PROVIDERS: ATTEND Internal Medicine
DX: I11.0 Hypertensive heart disease with heart failure (principal); I50.9 Heart failure, unspecified

== ENCOUNTER → 2017-04-09 | Outpatient (CLI) | payer MEDICARE, MEDICAID ==
[~2017-04-09] MED LIST changes: -ACET-654 PO; +ACET1TAB17 PO; +BACITAB PO; -BACITAB3 PO; -LEVA750T PO; +LEVA750T7 PO; -LEVO125T3 PO; +LEVO125T4 PO
--- NOTE | 2017-04-09 13:48 | REP ---
Left lower extremity deep vein duplex ultrasound: The deep veins of the left lower extremity demonstrate normal compression, normal Doppler color flow and normal Doppler waveforms with respiration and augmentation at multiple levels. Impression: There is no evidence of left lower extremity deep vein thrombus. Signed by Alan Gutierrez MD 04/09/2017 01:40 P
== END ==
LOC: M RAD 12:56
PROVIDERS: ATTEND Physician Assistant
DX: M79.89 Other specified soft tissue disorders (principal)

== ENCOUNTER → 2017-04-18 | Outpatient (REF) | payer MEDICARE, MEDICAID | PROVIDERS: ATTEND Internal Medicine | DX: E78.5 Hyperlipidemia, unspecified (principal); Z79.899 Other long term (current) drug therapy ==

== ENCOUNTER → 2017-05-29 | Outpatient (REF) | payer MEDICARE, MEDICAID ==
--- NOTE | 2017-05-29 16:01 | REP ---
Clinical: Cough. Comparison: 02/05/2017. Findings: Examination is limited by portable technique, underpenetration, and positioning. Mediastinum and cardiac silhouette are relatively stable. Chronic interstitial changes are suggested. No obvious focal consolidation, effusion, or pneumothorax. Clips along the left side of the superior mediastinum suggest prior thyroid surgery. Osseous structures are stable. Impression: Chronic stable changes. No obvious acute process. Signed by Berry Bajwa MD 05/29/2017 03:53 P
== END ==
PROVIDERS: ATTEND Internal Medicine
DX: R05 Cough (principal); J98.4 Other disorders of lung

== ENCOUNTER → 2017-07-17 | Outpatient (REF) | payer MEDICARE, MEDICAID | PROVIDERS: ATTEND Internal Medicine | DX: E11.9 Type 2 diabetes mellitus without complications (principal) ==

== ENCOUNTER 2017-08-04 07:03 | Emergency (ER) | payer MEDICARE, MEDICAID ==
[~2017-08-04] VITALS: Ht 167.6 cm; Wt 108.2 kg
[2017-08-04 10:14] VITALS: BP 191/91
== END 2017-08-04 10:30 | disposition home or self-care (01) ==
LOC: M ED 07:03 → EDBD 07:03 → M ED 10:30
DX: R04.0 Epistaxis (principal); E11.9 Type 2 diabetes mellitus without complications; I10 Essential (primary) hypertension; G20 Parkinson's disease; K21.9 Gastro-esophageal reflux disease without esophagitis; E78.9 Disorder of lipoprotein metabolism, unspecified; N40.0 Benign prostatic hyperplasia without lower urinary tract symptoms; Z79.4 Long term (current) use of insulin; Z79.82 Long term (current) use of aspirin; Z79.899 Other long term (current) drug therapy; Z88.0 Allergy status to penicillin; Z88.1 Allergy status to other antibiotic agents

== ENCOUNTER → 2017-08-06 | Outpatient (REF) | payer MEDICARE, MEDICAID | PROVIDERS: ATTEND Internal Medicine | DX: Z53.8 Procedure and treatment not carried out for other reasons (principal) ==

== ENCOUNTER → 2017-08-21 | Outpatient (REF) | payer MEDICARE, MEDICAID ==
[2017-08-21 12:30] LABS: MEAN CORPUSCULAR HEMOGLOBIN 29.7 pg (27.0-33.0); MEAN CORPUSCULAR HGB CONC 32.9 g/dl (32.0-36.5); MEAN CORPUSCULAR VOLUME 90.2 fl (80.0-96.0); PLATELET COUNT, AUTOMATED 310 10^3/uL (150-450); RED CELL DISTRIBUTION WIDTH 13.4 % (11.5-14.5); WHITE BLOOD COUNT 9.6 10^3/uL (4.0-10.0)
[2017-08-21 13:09] LABS: ALBUMIN 2.9 GM/DL (3.2-5.2); ALBUMIN/GLOBULIN RATIO 0.78 (1.00-1.93); BILIRUBIN,TOTAL 0.8 MG/DL (0.2-1.0); CALCIUM LEVEL 8.2 MG/DL (8.8-10.2); CREATININE FOR GFR 1.23 MG/DL (0.70-1.30); GLOMERULAR FILTRATION RATE 59.5 (>35); POTASSIUM SERUM 3.8 MEQ/L (3.5-5.1); TOTAL PROTEIN 6.6 GM/DL (6.4-8.2)
== END ==
PROVIDERS: ATTEND Internal Medicine
DX: E03.9 Hypothyroidism, unspecified (principal); I50.9 Heart failure, unspecified; I11.0 Hypertensive heart disease with heart failure

== ENCOUNTER → 2017-09-19 | Outpatient (REF) | payer MEDICARE, MEDICAID | DX: E03.9 Hypothyroidism, unspecified (principal) | CPT/HCPCS: 84443 ==

== ENCOUNTER → 2017-09-25 | Outpatient (REF) | payer MEDICARE, MEDICAID ==
[2017-09-25 14:49] LABS: ANION GAP 10 MEQ/L (8-16); BLOOD UREA NITROGEN 21 MG/DL (7-18); CALCIUM LEVEL 7.5 MG/DL (8.8-10.2); CARBON DIOXIDE LEVEL 31 MEQ/L (21-32); CHLORIDE LEVEL 99 MEQ/L (98-107); CREATININE FOR GFR 1.21 MG/DL (0.70-1.30); GLOMERULAR FILTRATION RATE > 60.0 (>35); GLUCOSE, FASTING 170 MG/DL (83-110); NT-PRO BNP 1560 PG/ML (<450); POTASSIUM SERUM 3.9 MEQ/L (3.5-5.1); SODIUM LEVEL 140 MEQ/L (136-145)
[2017-09-25 15:15] LABS: HEMATOCRIT 38.4 % (42.0-52.0); HEMOGLOBIN 12.5 g/dl (14.0-18.0); MEAN CORPUSCULAR HEMOGLOBIN 29.2 pg (27.0-33.0); MEAN CORPUSCULAR HGB CONC 32.6 g/dl (32.0-36.5); MEAN CORPUSCULAR VOLUME 89.7 fl (80.0-96.0); PLATELET COUNT, AUTOMATED 278 10^3/uL (150-450); RED BLOOD COUNT 4.28 10^6/uL (4.30-6.10); RED CELL DISTRIBUTION WIDTH 12.9 % (11.5-14.5); WHITE BLOOD COUNT 14.3 10^3/uL (4.0-10.0)
== END ==
DX: E03.9 Hypothyroidism, unspecified (principal); Z88.0 Allergy status to penicillin; Z88.8 Allergy status to other drugs, medicaments and biological substances; R05 Cough; R06.02 Shortness of breath
CPT/HCPCS: 80048

== ENCOUNTER → 2017-09-26 | Outpatient (REF) | payer MEDICARE, MEDICAID | DX: R05 Cough (principal) | CPT/HCPCS: 71045 ==

== ENCOUNTER → 2017-09-27 | Outpatient (REF) | payer MEDICARE, MEDICAID ==
[2017-09-27 12:49] LABS: HEMATOCRIT 42.2 % (42.0-52.0); HEMOGLOBIN 13.4 g/dl (14.0-18.0); MEAN CORPUSCULAR HEMOGLOBIN 29.3 pg (27.0-33.0); MEAN CORPUSCULAR HGB CONC 31.8 g/dl (32.0-36.5); MEAN CORPUSCULAR VOLUME 92.1 fl (80.0-96.0); PLATELET COUNT, AUTOMATED 156 10^3/uL (150-450); RED BLOOD COUNT 4.58 10^6/uL (4.30-6.10); RED CELL DISTRIBUTION WIDTH 12.9 % (11.5-14.5); WHITE BLOOD COUNT 12.5 10^3/uL (4.0-10.0)
== END ==
DX: D72.829 Elevated white blood cell count, unspecified (principal)
CPT/HCPCS: 85027

== ENCOUNTER → 2017-10-17 | Outpatient (REF) | payer MEDICARE, MEDICAID ==
[2017-10-17 10:52] LABS: ESTIMATED AVERAGE GLUCOSE 183 MG/DL (60-110)
== END ==
DX: E11.9 Type 2 diabetes mellitus without complications (principal); E03.9 Hypothyroidism, unspecified
CPT/HCPCS: 84443

== ENCOUNTER → 2017-10-19 | Outpatient (REF) | payer MEDICARE, MEDICAID ==
[2017-10-19 13:10] LABS: HEMATOCRIT 40.1 % (42.0-52.0); HEMOGLOBIN 12.9 g/dl (14.0-18.0); MEAN CORPUSCULAR HEMOGLOBIN 28.2 pg (27.0-33.0); MEAN CORPUSCULAR HGB CONC 32.2 g/dl (32.0-36.5); MEAN CORPUSCULAR VOLUME 87.6 fl (80.0-96.0); PLATELET COUNT, AUTOMATED 264 10^3/uL (150-450); RED BLOOD COUNT 4.58 10^6/uL (4.30-6.10); WHITE BLOOD COUNT 11.5 10^3/uL (4.0-10.0)
[2017-10-19 14:02] LABS: ANION GAP 11 MEQ/L (8-16); BLOOD UREA NITROGEN 21 MG/DL (7-18); CALCIUM LEVEL 7.4 MG/DL (8.8-10.2); CARBON DIOXIDE LEVEL 30 MEQ/L (21-32); CHLORIDE LEVEL 101 MEQ/L (98-107); CREATININE FOR GFR 1.09 MG/DL (0.70-1.30); GLOMERULAR FILTRATION RATE > 60.0 (>35); GLUCOSE, FASTING 154 MG/DL (70-100); NT-PRO BNP 843 PG/ML (<450); POTASSIUM SERUM 3.5 MEQ/L (3.5-5.1); SODIUM LEVEL 142 MEQ/L (136-145)
== END ==
DX: I50.9 Heart failure, unspecified (principal); I51.7 Cardiomegaly; R05 Cough
CPT/HCPCS: 80048

== ENCOUNTER → 2017-10-20 | Outpatient (REF) | payer MEDICARE, MEDICAID | DX: H92.10 Otorrhea, unspecified ear (principal) | CPT/HCPCS: 87185 ==

== ENCOUNTER → 2017-10-22 | Outpatient (REF) | payer MEDICARE, MEDICAID ==
[2017-10-22 12:56] LABS: HEMATOCRIT 40.5 % (42.0-52.0); HEMOGLOBIN 13.1 g/dl (14.0-18.0); MEAN CORPUSCULAR HEMOGLOBIN 28.8 pg (27.0-33.0); MEAN CORPUSCULAR HGB CONC 32.3 g/dl (32.0-36.5); PLATELET COUNT, AUTOMATED 276 10^3/uL (150-450); RED BLOOD COUNT 4.55 10^6/uL (4.30-6.10); RED CELL DISTRIBUTION WIDTH 13.3 % (11.5-14.5); WHITE BLOOD COUNT 9.1 10^3/uL (4.0-10.0)
[2017-10-22 13:34] LABS: ANION GAP 8 MEQ/L (8-16); BLOOD UREA NITROGEN 23 MG/DL (7-18); CALCIUM LEVEL 7.5 MG/DL (8.8-10.2); CARBON DIOXIDE LEVEL 32 MEQ/L (21-32); CHLORIDE LEVEL 101 MEQ/L (98-107); CREATININE FOR GFR 1.38 MG/DL (0.70-1.30); GLOMERULAR FILTRATION RATE 52.1 (>35); GLUCOSE, FASTING 206 MG/DL (70-100); NT-PRO BNP 821 PG/ML (<450); SODIUM LEVEL 141 MEQ/L (136-145)
== END ==
DX: R05 Cough (principal); E03.9 Hypothyroidism, unspecified; E11.9 Type 2 diabetes mellitus without complications; I10 Essential (primary) hypertension; E78.5 Hyperlipidemia, unspecified; R06.02 Shortness of breath
CPT/HCPCS: 84443

== ENCOUNTER → 2017-10-30 | Outpatient (REF) | payer MEDICARE, MEDICAID ==
[2017-10-30 11:03] LABS: HEMATOCRIT 38.6 % (42.0-52.0); HEMOGLOBIN 12.4 g/dl (14.0-18.0); MEAN CORPUSCULAR HEMOGLOBIN 28.7 pg (27.0-33.0); MEAN CORPUSCULAR HGB CONC 32.1 g/dl (32.0-36.5); MEAN CORPUSCULAR VOLUME 89.4 fl (80.0-96.0); PLATELET COUNT, AUTOMATED 259 10^3/uL (150-450); RED BLOOD COUNT 4.32 10^6/uL (4.30-6.10); RED CELL DISTRIBUTION WIDTH 13.2 % (11.5-14.5)
[2017-10-30 11:36] LABS: ANION GAP 10 MEQ/L (8-16); BLOOD UREA NITROGEN 21 MG/DL (7-18); CALCIUM LEVEL 7.7 MG/DL (8.8-10.2); CARBON DIOXIDE LEVEL 30 MEQ/L (21-32); CHLORIDE LEVEL 101 MEQ/L (98-107); CREATININE FOR GFR 1.15 MG/DL (0.70-1.30); GLOMERULAR FILTRATION RATE > 60.0 (>35); GLUCOSE, FASTING 199 MG/DL (70-100); NT-PRO BNP 724 PG/ML (<450); POTASSIUM SERUM 3.8 MEQ/L (3.5-5.1); SODIUM LEVEL 141 MEQ/L (136-145)
== END ==
DX: I50.9 Heart failure, unspecified (principal)
CPT/HCPCS: 80048

== ENCOUNTER → 2018-01-15 | Outpatient (REF) | payer MEDICARE, MEDICAID ==
[2018-01-15 12:11] LABS: ESTIMATED AVERAGE GLUCOSE 143 MG/DL (60-110); HEMOGLOBIN A1c 6.6 %
== END ==
DX: E11.9 Type 2 diabetes mellitus without complications (principal)
CPT/HCPCS: 83036

== ENCOUNTER → 2018-02-12 | Outpatient (REF) | payer MEDICARE, MEDICAID ==
[2018-02-12 11:53] LABS: HEMATOCRIT 41.4 % (42.0-52.0); HEMOGLOBIN 13.4 g/dl (13.5-17.5); MEAN CORPUSCULAR HEMOGLOBIN 28.9 pg (27.0-33.0); MEAN CORPUSCULAR HGB CONC 32.4 g/dl (32.0-36.5); MEAN CORPUSCULAR VOLUME 89.2 fl (80.0-96.0); PLATELET COUNT, AUTOMATED 305 10^3/uL (150-450); RED BLOOD COUNT 4.64 10^6/uL (4.30-6.10); RED CELL DISTRIBUTION WIDTH 13.8 % (11.5-14.5); WHITE BLOOD COUNT 9.5 10^3/uL (4.0-10.0)
[2018-02-12 12:40] LABS: ALBUMIN 3.2 GM/DL (3.2-5.2); ALBUMIN/GLOBULIN RATIO 0.97 (1.00-1.93); ALKALINE PHOSPHATASE 89 U/L (45-117); ALT/SGPT 6 U/L (12-78); ANION GAP 6 MEQ/L (8-16); AST/SGOT 16 U/L (7-37); BILIRUBIN,TOTAL 1.1 MG/DL (0.2-1.0); BLOOD UREA NITROGEN 24 MG/DL (7-18); CARBON DIOXIDE LEVEL 34 MEQ/L (21-32); CHLORIDE LEVEL 103 MEQ/L (98-107); CREATININE FOR GFR 1.18 MG/DL (0.70-1.30); GLOMERULAR FILTRATION RATE > 60.0 (>35); GLUCOSE, FASTING 81 MG/DL (70-100); POTASSIUM SERUM 3.9 MEQ/L (3.5-5.1); SODIUM LEVEL 143 MEQ/L (136-145); TOTAL PROTEIN 6.5 GM/DL (6.4-8.2)
== END ==
DX: E03.9 Hypothyroidism, unspecified (principal); I50.9 Heart failure, unspecified; I11.0 Hypertensive heart disease with heart failure
CPT/HCPCS: 84443

== ENCOUNTER → 2018-04-15 | Outpatient (REF) | payer MEDICARE, MEDICAID | DX: J84.9 Interstitial pulmonary disease, unspecified (principal); I51.7 Cardiomegaly; R06.2 Wheezing; R05 Cough | CPT/HCPCS: 71045 ==

== ENCOUNTER → 2018-04-16 | Outpatient (REF) | payer MEDICARE, MEDICAID ==
[2018-04-16 11:45] LABS: CHOLESTEROL LEVEL 93 MG/DL (<200); CHOLESTEROL RISK RATIO 2.162 (<5); HDL CHOLESTEROL 43 MG/DL (>40); NON-HDL-C 50 MG/DL; TRIGLYCERIDES LEVEL 55 MG/DL (<150)
[2018-04-16 14:07] LABS: ESTIMATED AVERAGE GLUCOSE 146 MG/DL (60-110); HEMOGLOBIN A1c 6.7 %
== END ==
DX: E11.9 Type 2 diabetes mellitus without complications (principal); E78.5 Hyperlipidemia, unspecified
CPT/HCPCS: 83036

== ENCOUNTER → 2018-06-19 | Outpatient (REF) | payer MEDICARE, MEDICAID ==
[2018-06-19 10:22] LABS: ESTIMATED AVERAGE GLUCOSE 151 MG/DL (60-110); HEMOGLOBIN A1c 6.9 %
== END ==
DX: E11.9 Type 2 diabetes mellitus without complications (principal)
CPT/HCPCS: 83036

== ENCOUNTER → 2018-08-20 | Outpatient (REF) | payer MEDICARE, MEDICAID ==
[2018-08-20 09:45] LABS: HEMATOCRIT 41.4 % (42.0-52.0); HEMOGLOBIN 13.6 g/dl (13.5-17.5); MEAN CORPUSCULAR HGB CONC 32.9 g/dl (32.0-36.5); MEAN CORPUSCULAR VOLUME 88.3 fl (80.0-96.0); PLATELET COUNT, AUTOMATED 264 10^3/uL (150-450); RED BLOOD COUNT 4.69 10^6/uL (4.30-6.10); RED CELL DISTRIBUTION WIDTH 14.1 % (11.5-14.5); WHITE BLOOD COUNT 8.5 10^3/uL (4.0-10.0)
[2018-08-20 10:13] LABS: ALBUMIN/GLOBULIN RATIO 0.97 (1.00-1.93); ALKALINE PHOSPHATASE 83 U/L (45-117); ALT/SGPT 19 U/L (12-78); ANION GAP 10 MEQ/L (8-16); AST/SGOT 38 U/L (7-37); BILIRUBIN,TOTAL 1.1 MG/DL (0.2-1.0); BLOOD UREA NITROGEN 25 MG/DL (7-18); CALCIUM LEVEL 7.9 MG/DL (8.8-10.2); CARBON DIOXIDE LEVEL 28 MEQ/L (21-32); CHLORIDE LEVEL 100 MEQ/L (98-107); CREATININE FOR GFR 1.26 MG/DL (0.70-1.30); GLOMERULAR FILTRATION RATE 57.8 (>35); GLUCOSE, FASTING 181 MG/DL (70-100); POTASSIUM SERUM 4.4 MEQ/L (3.5-5.1); SODIUM LEVEL 138 MEQ/L (136-145); TOTAL PROTEIN 6.1 GM/DL (6.4-8.2)
== END ==
DX: E03.9 Hypothyroidism, unspecified (principal); I50.9 Heart failure, unspecified; I10 Essential (primary) hypertension
CPT/HCPCS: 84443

== ENCOUNTER → 2018-10-16 | Outpatient (REF) | payer MEDICARE, MEDICAID ==
[~2018-10-16] MED LIST changes: -ACET1TAB17 PO; +ACET1TAB55 PO; -CARB25TA PO; +CARB25TA9 PO; +GUAI100S27 PO; -GUAI100S7 PO; -LOSA50TA20 PO; +LOSA50TA88 PO; +MILK120011 PO; -MILKSUS PO
[2018-10-16 10:24] LABS: HEMOGLOBIN A1c 8.6 %
== END ==
PROVIDERS: ATTEND Internal Medicine
DX: E11.9 Type 2 diabetes mellitus without complications (principal)

== ENCOUNTER 2019-02-28 22:33 | Emergency (ER) | payer MEDICARE, MEDICAID ==
[~2019-02-28] VITALS: Ht 172.7 cm; Wt 104.5 kg
[~2019-02-28 22:33] MED LIST changes: -ASPI81CH PO; +ASPI81CH49 PO; +GUAI100L6 PO; -GUAI100S27 PO
[2019-03-01] MEDS ORDERED: CARB25TA9 PO (00:15)
[2019-03-01] MEDS ORDERED: LOSA50TA88 PO (00:15)
[2019-03-01] MEDS ORDERED: ATOR1TAB21 PO (00:15)
[2019-03-01] MEDS ORDERED: TORS100T PO (00:15)
[2019-03-01] MEDS ORDERED: TRAM50TA2 PO ×2 (00:15)
[2019-03-01] MEDS ORDERED: OMEP-218 PO (00:15)
[2019-03-01] MEDS ORDERED: ALBU83IN INH (00:15)
[2019-03-01] MEDS ORDERED: ACET-907 PO (00:15)
[2019-03-01] MEDS ORDERED: HUMA100I5 SC (00:15)
[2019-03-01] MEDS ORDERED: MOM30SS2 PO (00:15)
[2019-03-01] MEDS ORDERED: GLUC1KIT IM (00:15)
[2019-03-01] MEDS ORDERED: TRES1INJ SC (00:15)
[2019-03-01] MEDS ORDERED: POTA10TA17 PO (00:15)
[2019-03-01] MEDS ORDERED: DULC10SU2 PR (00:15)
[2019-03-01] MEDS ORDERED: TRAV04OPD OU (00:15)
[2019-03-01] MEDS ORDERED: SYNT150T PO (00:15)
[2019-03-01] MEDS ORDERED: ASPI81CH33 PO (00:15)
[2019-03-01 00:36] VITALS: BP 201/91
== END 2019-03-01 01:44 | disposition home or self-care (01) ==
LOC: EDBD 22:33 → M ED 22:33
DX: N99.518 Other cystostomy complication (principal); R33.9 Retention of urine, unspecified; E11.9 Type 2 diabetes mellitus without complications; I10 Essential (primary) hypertension; K21.9 Gastro-esophageal reflux disease without esophagitis; N40.0 Benign prostatic hyperplasia without lower urinary tract symptoms; G20 Parkinson's disease; Z79.899 Other long term (current) drug therapy; Z79.890 Hormone replacement therapy; Z79.82 Long term (current) use of aspirin; Z79.4 Long term (current) use of insulin; Z88.0 Allergy status to penicillin; Z88.1 Allergy status to other antibiotic agents

== ENCOUNTER → 2019-03-11 | Outpatient (REF) | payer MEDICARE, MEDICAID ==
[~2019-03-11] MED LIST changes: +ACET-907 PO; +ALBU83IN INH; +ASPI81CH33 PO; +DULC10SU2 PR; +HUMA100I5 SC; +MOM30SS2 PO; +OMEP-218 PO; +POTA10TA17 PO; +SYNT150T PO
[2019-03-11 10:09] LABS: HEMOGLOBIN A1c 7.2 %
== END ==
PROVIDERS: ATTEND Internal Medicine
DX: E11.9 Type 2 diabetes mellitus without complications (principal)

== ENCOUNTER → 2019-04-16 | Outpatient (REF) | payer MEDICARE, MEDICAID ==
[~2019-04-16] MED LIST changes: -OMEP20CA3 PO; +OMEP20CA4 PO
[2019-04-16 09:49] LABS: CHOLESTEROL RISK RATIO 2.282 (<5)
[2019-04-16 10:00] LABS: HEMOGLOBIN A1c 6.6 %
== END ==
PROVIDERS: ATTEND Internal Medicine
DX: E03.9 Hypothyroidism, unspecified (principal); E11.9 Type 2 diabetes mellitus without complications

== ENCOUNTER → 2019-04-18 | Outpatient (REF) | payer MEDICARE, MEDICAID ==
--- NOTE | 2019-04-18 15:16 | REP ---
CHEST, SINGLE VIEW: Single view of the chest is performed and compared to a prior study of 04/15/2018. Cardiac silhouette is prominent. Patient is rotated to the left. There appear to be diffuse bilateral infiltrates. This may represent pulmonary edema. There is calcification of the thoracic aorta. Metallic clips are seen in the soft tissues of the neck. IMPRESSION: Diffuse bilateral infiltrates. Unreviewed
[2019-04-18 18:11] LABS: HEMATOCRIT 39.3 % (42.0-52.0); HEMOGLOBIN 12.1 g/dl (13.5-17.5); MEAN CORPUSCULAR HEMOGLOBIN 28.5 pg (27.0-33.0); MEAN CORPUSCULAR HGB CONC 30.8 g/dl (32.0-36.5); MEAN CORPUSCULAR VOLUME 92.5 fl (80.0-96.0); PLATELET COUNT, AUTOMATED 278 10^3/uL (150-450); RED BLOOD COUNT 4.25 10^6/uL (4.30-6.10); WHITE BLOOD COUNT 10.8 10^3/uL (4.0-10.0)
[2019-04-18 18:51] LABS: CALCIUM LEVEL 7.7 MG/DL (8.8-10.2); CREATININE FOR GFR 1.23 MG/DL (0.70-1.30); GLOMERULAR FILTRATION RATE 59.3 (>35); POTASSIUM SERUM 4.1 MEQ/L (3.5-5.1)
== END ==
PROVIDERS: ATTEND Internal Medicine
DX: R91.8 Other nonspecific abnormal finding of lung field (principal); R06.02 Shortness of breath

== ENCOUNTER → 2019-04-22 | Outpatient (REF) | payer MEDICARE, MEDICAID ==
[2019-04-22 08:37] LABS: HEMATOCRIT 41.3 % (42.0-52.0); MEAN CORPUSCULAR HEMOGLOBIN 27.9 pg (27.0-33.0); MEAN CORPUSCULAR HGB CONC 31.5 g/dl (32.0-36.5); MEAN CORPUSCULAR VOLUME 88.6 fl (80.0-96.0); PLATELET COUNT, AUTOMATED 330 10^3/uL (150-450); RED BLOOD COUNT 4.66 10^6/uL (4.30-6.10); WHITE BLOOD COUNT 11.8 10^3/uL (4.0-10.0)
--- NOTE | 2019-04-22 08:37 | REP ---
Clinical: CHF. Technique: Single AP portable view of the chest. Comparison: 04/18/2019. Findings: Mediastinum and cardiac silhouette are stable. Evaluation is significantly limited by underpenetration, positioning, poor inspiratory effort and portable technique. Mild interstitial edema as well as possible left basilar atelectasis cannot be excluded. Impression: Severely limited examination. Cannot exclude interstitial edema or left basilar atelectasis. Electronically Signed by Berry Bajwa MD 04/22/2019 08:29 A
[2019-04-22 09:09] LABS: CALCIUM LEVEL 8.5 MG/DL (8.8-10.2); CREATININE FOR GFR 1.51 MG/DL (0.70-1.30); GLOMERULAR FILTRATION RATE 46.8 (>35); POTASSIUM SERUM 3.8 MEQ/L (3.5-5.1)
== END ==
PROVIDERS: ATTEND Internal Medicine
DX: I50.9 Heart failure, unspecified (principal)

== ENCOUNTER → 2019-04-24 | Outpatient (REF) | payer MEDICARE, MEDICAID ==
[2019-04-24 07:29] LABS: CALCIUM LEVEL 7.6 MG/DL (8.8-10.2); CREATININE FOR GFR 1.42 MG/DL (0.70-1.30); GLOMERULAR FILTRATION RATE 50.2 (>35); POTASSIUM SERUM 3.7 MEQ/L (3.5-5.1)
== END ==
PROVIDERS: ATTEND Internal Medicine
DX: I50.9 Heart failure, unspecified (principal)

== ENCOUNTER → 2019-07-16 | Outpatient (REF) | payer MEDICARE, MEDICAID ==
[~2019-07-16] MED LIST changes: -OMEP40CA2 PO; +OMEP40CA97 PO
[2019-07-16 10:33] LABS: HEMOGLOBIN A1c 7.6 %
== END ==
PROVIDERS: ATTEND Internal Medicine
DX: E03.9 Hypothyroidism, unspecified (principal); Z79.899 Other long term (current) drug therapy

== ENCOUNTER → 2019-08-20 | Outpatient (REF) ==
[2019-08-20 09:54] LABS: HEMATOCRIT 40.9 % (42.0-52.0); MEAN CORPUSCULAR HEMOGLOBIN 29.2 pg (27.0-33.0); MEAN CORPUSCULAR HGB CONC 31.8 g/dl (32.0-36.5); MEAN CORPUSCULAR VOLUME 91.9 fl (80.0-96.0); PLATELET COUNT, AUTOMATED 283 10^3/uL (150-450); RED BLOOD COUNT 4.45 10^6/uL (4.30-6.10); WHITE BLOOD COUNT 9.2 10^3/uL (4.0-10.0)
[2019-08-20 10:38] LABS: ALBUMIN 2.8 GM/DL (3.2-5.2); BILIRUBIN,TOTAL 1.1 MG/DL (0.2-1.0); CALCIUM LEVEL 7.8 MG/DL (8.8-10.2); CREATININE FOR GFR 1.5 MG/DL (0.70-1.30); GLOMERULAR FILTRATION RATE 47.1 (>35); POTASSIUM SERUM 4.5 MEQ/L (3.5-5.1); THYROID STIMULATING HORMONE 0.17 uIU/ML (0.358-3.740)
== END ==
PROVIDERS: ATTEND Internal Medicine
DX: E03.9 Hypothyroidism, unspecified (principal)

== ENCOUNTER → 2019-09-23 | Outpatient (REF) ==
[~2019-09-23] MED LIST changes: +OMEP-172 PO; -OMEP20CA4 PO
== END ==
PROVIDERS: ATTEND Internal Medicine
DX: E03.9 Hypothyroidism, unspecified (principal)

== ENCOUNTER → 2019-10-21 | Outpatient (REF) | payer MEDICARE, MEDICAID ==
[~2019-10-21] MED LIST changes: -OMEP-172 PO; +OMEP1CAP73 PO
== END ==
PROVIDERS: ATTEND Internal Medicine
DX: E11.9 Type 2 diabetes mellitus without complications (principal)